=== PATIENT | female | born 1950 | race Caucasian/White ===

== ENCOUNTER → 2016-09-09 | Outpatient (CLI) | payer MEDICARE | LOC: WI 08:56 | DX: Z12.31 Encounter for screening mammogram for malignant neoplasm of breast (principal) | CPT/HCPCS: 77067; G0202 ==

== ENCOUNTER → 2017-06-18 | Outpatient (CLI) | payer MEDICARE ==
--- NOTE | 2017-06-18 10:54 | RADIOLOGY REPORT (SQ) ---
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 Images stored on PACS. CONTRAST TYPE AND DOSE: 12 mL Multihance. RENAL FUNCTION: GFR > 60. LIMITATIONS: None. FINDINGS: ANATOMY: No developmental anomalies. Normal vascular flow voids. Pituitary fossa normal. CSF SPACES: Normal in size and contour. No hemorrhage. CEREBRUM: Sulci and gyri normal in size and contour. Normal white matter signal on FLAIR imaging. No evidence of hemorrhage, mass, or extraaxial fluid collection. No abnormal enhancement post contrast. POSTERIOR FOSSA: No brain parenchymal signal alteration. No hemorrhage. No edema, masses, or mass eff ect. 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 Remainder of the thin section temporal bone imaging is otherwis e unremarkable DIFFUSION IMAGING: Negative for acute or subacute infarction. ORBITS: No masses. Globes normal. PARANASAL SINUSES: No fluid levels. Mucosa normal. OTHER: No other significant finding. 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 TECHNICAL DOCUMENTATION: JOB ID: [id number] [employer]- All Rights Reserved
== END ==
LOC: RAD 08:48
PROVIDERS: ATTEND Otolaryngology
DX: D33.3 Benign neoplasm of cranial nerves (principal); H91.8X2 Other specified hearing loss, left ear
CPT/HCPCS: 82565; 70553; A9577

== ENCOUNTER → 2017-12-18 | Outpatient (CLI) | payer MEDICARE ==
--- NOTE | 2017-12-19 08:12 | WOMENS IMAGING REPORT ---
EXAM DESCRIPTION: 3D SCREENING MAMMO BILAT COMPLETED DATE/TIME: 12/18/2017 9:37 am REASON FOR STUDY: BILATERAL MAMMO SCREENING/Z12.31 COMPARISON: 09/09/2016 and 09/08/2015. TECHNIQUE: Standard craniocaudal and mediolateral oblique views of each breast recorded using digita l acquisition and breast tomosynthesis. LIMITATIONS: None. FINDINGS: RIGHT BREAST MASSES: No suspicious masses. CALCIFICATIONS: No new or suspicious calcifications. ARCHITECTURAL DISTORTION: None. DEVELOPING DENSITY: Possible developing density in the lateral breast, located 8 cm from the nipple, seen on the CC image only. Somewhat difficult to evaluate due to adjacent dense parenchyma. On shaun synthesis images there is suggestion of some spiculation. ASYMMETRY: None noted. OTHER: No other significant findings. LEFT BREAST MASSES: No suspicious masses. CALCIFICATIONS: No new or suspicious calcifications. ARCHITECTURAL DISTORTION: None. DEVELOPING DENSITY: None. ASYMMETRY: None noted. OTHER: No other significant findings. Read with the assistance of CAD. .[facility] - R2 Cenova Version 1.3 .[facility] - R2 Cenova Version 1.3 .[facility] - R2 Cenova Version 2.4 .[facility] - R2 Cenova Version 2.4 .[facility] - R2 Help Desk Analyst Version 9.2 IMPRESSION: Possible developing density in the lateral right breast. Stable mammographic appearance of the left breast. BREAST DENSITY: c. The breasts are heterogeneously dense, which may obscure small masses. BIRAD: 0 Incomplete: Needs Additional Imaging Evaluation and/or prior Mammograms for Comparison. RECOMMENDATION: RECOMMENDED FOLLOW-UP: Recommend additional evaluation with compression breast tomos ynthesis views of the right breast and ultrasound of the right breast. Recommend routine screening m ammography of the left breast. The patient will be contacted for additional imaging. COMMENT: The patient has been notified of the results by letter per SA requirements. Additional no tification policies are in place for contacting patient with suspicious or incomplete findings. Quality ID #225: The [employer] recommends an annual screening mammogram for women aged 40 years or over. This facility utilizes a reminder system to ensure that all patients receive reminder letters, and/or direct phone calls for appointments. This includes reminders for routine scr eening mammograms, diagnostic mammograms, or other Breast Imaging Interventions when appropriate. Th is patient will be placed in the appropriate reminder system. The [employer] (ACR) has developed recommendations for screening MRI of the breast s in certain patient populations, to be used in conjunction with mammography. Breast MRI surveillanc e may be appropriate for women with more than 20% lifetime risk of developing breast cancer as deter mined by genetic testing, significant family history of the disease, or history of mantle radiation f or Hodgkins Disease. ACR Practice Guidelines 2008. DBT Technology DBT is a type of tomographic mammography. With conventional mammography, overlapping breast tissue ma y make lesions difficult to detect, even with good compression. DBT uses an x-ray tube that rotates a round the breast, taking images at different angles. These images are then combined to create thin sl ices of the breast that the radiologist can view as a 3D reconstruction. The [employer] unit can perform full-field digital mammograms (2D imaging); or DBT (3D imaging); or both, in a combination mode that quickly performs both the mammogram and the tomosynthesis scan while the breast is still compressed. PQRS 6045F: Fluoroscopic imaging is not utilized for breast tomosynthesis. TECHNICAL DOCUMENTATION: FINDING NUMBER: (1) ASSESSMENT: (1) JOB ID: [id number] [employer]- All Rights Reserved Reading location - IP/workstation name: [email or web address]
== END ==
LOC: WI 08:24
PROVIDERS: ATTEND Obstetrics & Gynecology Gynecology
DX: Z12.31 Encounter for screening mammogram for malignant neoplasm of breast (principal); N64.4 Mastodynia; N60.19 Diffuse cystic mastopathy of unspecified breast
CPT/HCPCS: 77063; 77067

== ENCOUNTER → 2017-12-25 | Outpatient (CLI) | payer MEDICARE ==
--- NOTE | 2017-12-26 07:37 | WOMENS IMAGING REPORT ---
EXAM DESCRIPTION: RIGHT DIAGNOSTIC MAMMO W/CAD; U/S BREAST UNILAT LIMITED COMPLETED DATE/TIME: 12/25/2017 10:59 am; 12/25/2017 12:38 pm REASON FOR STUDY: R92.2; RT BREAST; R92.2 R92.2 INCONCLUSIVE MAMMOGRAM COMPARISON: Mammograms 2015, 2016, 2018 TECHNIQUE: Standard craniocaudal and 90 mediolateral images of the breast recorded with digital acq uisition. Cone compression right breast CC view. Right breast ultrasound LIMITATIONS: None. FINDINGS: BREAST: Right MASSES: In the right breast 10 o'clock position about 8 cm from the nipple there is a persistent mamm ographic nodule, about 1 cm in size. CALCIFICATIONS: No new or suspicious calcifications. ARCHITECTURAL DISTORTION: None. DEVELOPING DENSITY: None. ASYMMETRY: None noted. OTHER: No other significant findings. Read with the assistance of CAD. .[facility] - R2 Cenova Version 1.3 .[facility] Imaging - R2 Cenova Version 1.3 .[facility] Imaging - R2 Cenova Version 2.4 .[facility] [place] - R2 Cenova Version 2.4 .[facility] - R2 Nuclear Physics Professor Version 9.2 Right breast ultrasound: Patient by both myself as well as the patient. In the right breast 10 o'clock position, about 8 cm f rom the nipple a persistent hypoechoic solid nodule is present, better visualized with tissue harmoni cs. This measures about 1 cm in size and likely correlates with the mammographic nodule. This has i ll-defined borders and acoustic absorption, worrisome for malignancy. Ultrasound-guided core biopsy and post biopsy clip placement is recommended in his right breast lesio n 10 o'clock position. These findings were discussed with the patient. She is amenable to biopsy be ing performed at [facility] by Dr. Lee. IMPRESSION: 1 cm solid nodule right breast laterally at the 10 o'clock position, worrisome for malig sara. Ultrasound-guided core biopsy, post biopsy clip placement with immediate two-view follow-up m ammogram recommended BREAST DENSITY: c. The breasts are heterogeneously dense, which may obscure small masses. BIRAD: 4C-Suspicious abnormality: Lesion which may require intervention with moderate concern for ma lignancy. RECOMMENDATION: RECOMMENDED FOLLOW UP: Right breast ultrasound-guided core biopsy, post biopsy clip placement with immediate two-view follow-up right breast mammogram recommended SPECIFIC INTERVENTION/IMAGING/CONSULTATION RECOMMENDED:As above COMMUNICATION:These findings were discussed directly with the patient at time of service COMMENT: The patient has been notified of the results by letter per SA requirements. Additional no tification policies are in place for contacting patient with suspicious or incomplete findings. Quality ID #225: The [employer] recommends an annual screening mammogram for women aged 40 years or over. This facility utilizes a reminder system to ensure that all patients receive reminder letters, and/or direct phone calls for appointments. This includes reminders for routine scr eening mammograms, diagnostic mammograms, or other Breast Imaging Interventions when appropriate. Th is patient will be placed in the appropriate reminder system. The [employer] (ACR) has developed recommendations for screening MRI of the breast s in certain patient populations, to be used in conjunction with mammography. Breast MRI surveillanc e may be appropriate for women with more than 20% lifetime risk of developing breast cancer as deter mined by genetic testing, significant family history of the disease, or history of mantle radiation f or Hodgkins Disease. ACR Practice Guidelines 2008. TECHNICAL DOCUMENTATION: FINDING NUMBER: (1) ASSESSMENT: (1) JOB ID: [id number] [employer]- All Rights Reserved Reading location - IP/workstation name: [email or web address]
--- NOTE | 2017-12-30 13:19 | WOMENS IMAGING REPORT ---
EXAM DESCRIPTION: RIGHT DIAGNOSTIC MAMMO W/CAD; U/S BREAST UNILAT LIMITED COMPLETED DATE/TIME: 12/25/2017 10:59 am; 12/25/2017 12:38 pm REASON FOR STUDY: R92.2; RT BREAST; R92.2 R92.2 INCONCLUSIVE MAMMOGRAM COMPARISON: Mammograms 2015, 2016, 2018 TECHNIQUE: Standard craniocaudal and 90 mediolateral images of the breast recorded with digital acq uisition. Cone compression right breast CC view. Right breast ultrasound LIMITATIONS: None. FINDINGS: BREAST: Right MASSES: In the right breast 10 o'clock position about 8 cm from the nipple there is a persistent mamm ographic nodule, about 1 cm in size. CALCIFICATIONS: No new or suspicious calcifications. ARCHITECTURAL DISTORTION: None. DEVELOPING DENSITY: None. ASYMMETRY: None noted. OTHER: No other significant findings. Read with the assistance of CAD. .[facility] - R2 Cenova Version 1.3 .[facility] - R2 Cenova Version 1.3 .[facility] Imaging - R2 Cenova Version 2.4 .[facility] - R2 Cenova Version 2.4 .[facility] - R2 Breeder Hen Service Technician Version 9.2 Right breast ultrasound: Patient by both myself as well as the patient. In the right breast 10 o'clock position, about 8 cm f rom the nipple a persistent hypoechoic solid nodule is present, better visualized with tissue harmoni cs. This measures about 1 cm in size and likely correlates with the mammographic nodule. This has i ll-defined borders and acoustic absorption, worrisome for malignancy. Ultrasound-guided core biopsy and post biopsy clip placement is recommended in his right breast lesio n 10 o'clock position. These findings were discussed with the patient. She is amenable to biopsy be ing performed at [facility] by Dr. Lee. IMPRESSION: 1 cm solid nodule right breast laterally at the 10 o'clock position, worrisome for malig sara. Ultrasound-guided core biopsy, post biopsy clip placement with immediate two-view follow-up m ammogram recommended BREAST DENSITY: c. The breasts are heterogeneously dense, which may obscure small masses. BIRAD: 4C-Suspicious abnormality: Lesion which may require intervention with moderate concern for ma lignancy. RECOMMENDATION: RECOMMENDED FOLLOW UP: Right breast ultrasound-guided core biopsy, post biopsy clip placement with immediate two-view follow-up right breast mammogram recommended SPECIFIC INTERVENTION/IMAGING/CONSULTATION RECOMMENDED:As above COMMUNICATION:These findings were discussed directly with the patient at time of service COMMENT: The patient has been notified of the results by letter per SA requirements. Additional no tification policies are in place for contacting patient with suspicious or incomplete findings. Quality ID #225: The [employer] recommends an annual screening mammogram for women aged 40 years or over. This facility utilizes a reminder system to ensure that all patients receive reminder letters, and/or direct phone calls for appointments. This includes reminders for routine scr eening mammograms, diagnostic mammograms, or other Breast Imaging Interventions when appropriate. Th is patient will be placed in the appropriate reminder system. The [employer] (ACR) has developed recommendations for screening MRI of the breast s in certain patient populations, to be used in conjunction with mammography. Breast MRI surveillanc e may be appropriate for women with more than 20% lifetime risk of developing breast cancer as deter mined by genetic testing, significant family history of the disease, or history of mantle radiation f or Hodgkins Disease. ACR Practice Guidelines 2008. TECHNICAL DOCUMENTATION: FINDING NUMBER: (1) ASSESSMENT: (1) JOB ID: [id number] [employer]- All Rights Reserved Reading location - IP/workstation name: [facility]
== END ==
LOC: WI 10:35
PROVIDERS: ATTEND Obstetrics & Gynecology Gynecology
DX: R92.2 Inconclusive mammogram (principal)
CPT/HCPCS: 76642

== ENCOUNTER → 2018-06-30 | Outpatient (CLI) | payer MEDICARE ==
--- NOTE | 2018-06-30 12:17 | RADIOLOGY REPORT (SQ) ---
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 TECHNIQUE: Multiplanar imaging includes non-contrasted T1, T2, FLAIR, diffusion with ADC map and pos t gadolinium contrast sequences. Additional thin slice images with and without gadolinium contrast a cquired in the posterior fossa. Images stored on PACS. CONTRAST TYPE AND DOSE: 14 mL Dot[employer]. RENAL FUNCTION: GFR > 60. LIMITATIONS: None. FINDINGS: ANATOMY: No anomalies. Normal vascular flow voids. Pituitary fossa normal. CSF SPACES: Normal. CEREBRUM: A few scattered high signal intensity lesions scattered through the white matter on FLAIR i maging with distribution suggesting chronic micro-vascular ischemic changes. No hemorrhage. No melissa a, masses or mass effect. No enhancing lesions. POSTERIOR FOSSA: Stable 3 x 4 mm enhancing lesion in the left internal auditory canal. DIFFUSION IMAGING: Negative for acute or sub-acute infarction. ORBITS: No masses. Globes normal. PARANASAL SINUSES: No fluid levels. Mucosa normal. OTHER: No other significant finding. IMPRESSION: STABLE 3 X 4 MM ENHANCING LESION IN THE LEFT INTERNAL AUDITORY CANAL CONSISTENT WITH AN ACOUSTIC SCHWANNOMA. MILD CHRONIC MICROVASCULAR ISCHEMIA. NO OTHER SIGNIFICANT FINDINGS. TECHNICAL DOCUMENTATION: JOB ID: [id number] [email or web address]- All Rights Reserved Reading location - IP/workstation name: [email or web address]
== END ==
LOC: RAD 11:54
PROVIDERS: ATTEND Otolaryngology
DX: Z01.812 Encounter for preprocedural laboratory examination (principal); H91.8X2 Other specified hearing loss, left ear; D33.3 Benign neoplasm of cranial nerves
CPT/HCPCS: 82565; 70553; A9576

== ENCOUNTER → 2018-12-23 | Outpatient (CLI) | payer MEDICARE ==
--- NOTE | 2018-12-23 12:21 | WOMENS IMAGING REPORT ---
EXAM DESCRIPTION: 3D SCREENING MAMMO BILAT COMPLETED DATE/TIME: 12/23/2018 10:45 am REASON FOR STUDY: Z12.31 ENCOUNTER FOR SCREENING MAMMOGRAM FOR MALIGNANT NEOPLASM OF BREAST Z12.31 ENCNTR SCREEN MAMMOGRAM FOR MALIGNANT NEOPLASM OF [place]E COMPARISON: 12/18/2017 and 09/09/2016. EXAM PARAMETERS: Standard craniocaudal and mediolateral oblique views of each breast recorded using digital acquisition and breast tomosynthesis. Read with the assistance of CAD. .[facility] - [employer] Conditioning Machine Operator Version 9.2 LIMITATIONS: None. FINDINGS: RIGHT BREAST MASSES: Irregular nodular density in the upper-outer breast, best demonstrated on the MLO images. CALCIFICATIONS: No new or suspicious calcifications. ARCHITECTURAL DISTORTION: None. DEVELOPING DENSITY: None. ASYMMETRY: None noted. OTHER: No other significant findings. LEFT BREAST MASSES: No suspicious masses. CALCIFICATIONS: No new or suspicious calcifications. ARCHITECTURAL DISTORTION: None. DEVELOPING DENSITY: None. ASYMMETRY: None noted. OTHER: No other significant findings. IMPRESSION: Irregular nodular density in the upper-outer right breast. Stable mammographic appearan ce of the left breast. 0 Incomplete: Needs Additional Imaging Evaluation and/or prior Mammograms for Comparison. BREAST DENSITY: c. The breasts are heterogeneously dense, which may obscure small masses. BIRAD: ASSESSMENT: 0 Incomplete: Needs Additional Imaging Evaluation and/or prior Mammograms for C omparison. RECOMMENDATION: RECOMMENDED FOLLOW-UP: Recommend additional evaluation with compression views of the right breast and ultrasound of the right breast. Recommend routine screening mammography of the lef t breast. The patient will be contacted for additional imaging. COMMENT: The patient has been notified of the results by letter per SA requirements. Additional no tification policies are in place for contacting patient with suspicious or incomplete findings. Quality ID #225: The [employer] recommends an annual screening mammogram for women aged 40 years or over. This facility utilizes a reminder system to ensure that all patients receive reminder letters, and/or direct phone calls for appointments. This includes reminders for routine scr eening mammograms, diagnostic mammograms, or other Breast Imaging Interventions when appropriate. Th is patient will be placed in the appropriate reminder system. TECHNICAL DOCUMENTATION: FINDING NUMBER: (1) ASSESSMENT: (1) JOB ID: [id number] [employer]- All Rights Reserved Reading location - IP/workstation name: [email or web address]
== END ==
LOC: WI 10:37
PROVIDERS: ATTEND Obstetrics & Gynecology Gynecology
DX: Z12.31 Encounter for screening mammogram for malignant neoplasm of breast (principal); N63.11 Unspecified lump in the right breast, upper outer quadrant
CPT/HCPCS: 77063; 77067

== ENCOUNTER → 2019-01-13 | Outpatient (CLI) | payer MEDICARE ==
--- NOTE | 2019-01-13 12:57 | WOMENS IMAGING REPORT ---
EXAM DESCRIPTION: RIGHT DIAGNOSTIC MAMMO W/CAD; U/S BREAST UNILAT LIMITED COMPLETED DATE/TIME: 01/13/2019 11:03 am; 01/13/2019 11:54 am REASON FOR STUDY: N63.11 IRREGULAR NODULAR DENSITY IN UPPER OUTER RIGHT BREAST; N63.11 RIGHT BREAST N63.11 UNSPECIFIED LUMP IN THE RIGHT BREAST, UPPER OUTER DAVID COMPARISON: 2015 through 2017. 12/23/2018. EXAM PARAMETERS: Spot CC and MLO. Non spot compressed true lateral. Targeted right breast ultrasound. LIMITATIONS: None. FINDINGS: BREAST LATERALITY: right MASSES: Difficult to define any discrete mass. Chronic heterogeneous tissue throughout the upper out er quadrant. CALCIFICATIONS: No new or suspicious calcifications. ARCHITECTURAL DISTORTION: None. DEVELOPING DENSITY: None. ASYMMETRY: None noted. OTHER: No other significant findings. Ultrasound: At approximately 10- 11 o'clock in the upper outer quadrant, there is a sub 8 mm area of irregular hypoechoic tissue with shadowing. IMPRESSION: Mammograms are relatively unremarkable. However, there is an irregular lesion seen on u ltrasound which has suspicious features. This is amenable to ultrasound-guided core biopsy. BREAST DENSITY: c. The breasts are heterogeneously dense, which may obscure small masses. BIRAD: ASSESSMENT: 4 Suspicious. Biopsy should be performed in the absence of clinical contra-indic ation. RECOMMENDATION: RECOMMENDED FOLLOW UP: Birads 4: Biopsy should be performed in the absence of clinic al contraindication. SPECIFIC INTERVENTION/IMAGING/CONSULTATION RECOMMENDED:The suspicious finding(s) amenable to US guide d core/vacuum assisted biopsy. COMMUNICATION:Full imaging was not reviewed at the time of the patient's visit. She was instructed t o follow up with her referring clinician for results. COMMENT: The patient has been notified of the results by letter per SA requirements. Additional no tification policies are in place for contacting patient with suspicious or incomplete findings. Quality ID #225: The [employer] recommends an annual screening mammogram for women aged 40 years or over. This facility utilizes a reminder system to ensure that all patients receive reminder letters, and/or direct phone calls for appointments. This includes reminders for routine scr eening mammograms, diagnostic mammograms, or other Breast Imaging Interventions when appropriate. Th is patient will be placed in the appropriate reminder system. TECHNICAL DOCUMENTATION: FINDING NUMBER: (1) ASSESSMENT: (1) JOB ID: [id number] [employer]- All Rights Reserved Reading location - IP/workstation name: [email or web address]
== END ==
LOC: WI 10:40
PROVIDERS: ATTEND Obstetrics & Gynecology Gynecology
DX: N63.11 Unspecified lump in the right breast, upper outer quadrant (principal)
CPT/HCPCS: 76642

== ENCOUNTER → 2019-09-21 | Outpatient (CLI) | payer MEDICARE ==
--- NOTE | 2019-09-21 15:59 | WOMENS IMAGING REPORT ---
EXAM DESCRIPTION: 3D DX MAMMO RIGHT UNILAT; U/S BREAST UNILAT LIMITED IMAGES COMPLETED DATE/TIME: 09/21/2019 10:08 am; 09/21/2019 10:42 am REASON FOR STUDY: 6 MONTH FOLLOW UP; RT BREAST 6 MONTH FOLLOW UP R92.8 OTH ABN AND INCONCLUSIVE FIN DINGS ON DX IMAGING OF [place] COMPARISON: Multiple mammograms since 2016 Right breast ultrasound 12/25/2017, 01/13/2019 EXAM PARAMETERS: Standard craniocaudal, 90 mediolateral and mediolateral oblique images of the ramila st recorded using digital acquisition and breast tomosynthesis. Cone compression CC and MLO orientation mammograms upper outer quadrant. Right breast ultrasound was also performed. Read with the assistance of CAD. .[facility] - [employer] Process Description Writer Version 9.2 LIMITATIONS: None. FINDINGS: BREAST LATERALITY: right MASSES: No suspicious masses. CALCIFICATIONS: No new or suspicious calcifications. ARCHITECTURAL DISTORTION: None. ASYMMETRY: None noted. OTHER: No other significant findings. Right breast ultrasound: Ultrasound of the right breast upper outer quadrant was performed. At the 10 o'clock position a hypo echoic solid ill-defined mass with acoustic absorption is present measuring about 9 x 9 mm in size. This is taller than wide. There is acoustic shadowing and ill-defined margins with questionable inte rnal color flow. This is suspicious for malignancy, ultrasound-guided core biopsy, post biopsy clip placement with follow-up two-view mammogram recommended. This finding was best visualized with tissu e harmonics. Ultrasound of the right axilla is unremarkable. No enlarged lymph nodes. IMPRESSION: Persistent sonographic 9 mm mass right breast 10 o'clock position, worrisome for maligna ncy. Ultrasound-guided core biopsy with post biopsy clip placement and follow-up two-view mammogram recommended. BREAST DENSITY: c. The breasts are heterogeneously dense, which may obscure small masses. BIRAD: ASSESSMENT: 4 Suspicious. Biopsy should be performed in the absence of clinical contra-indic ation. RECOMMENDATION: RECOMMENDED FOLLOW UP: Ultrasound-guided core biopsy with post biopsy clip placement and follow-up two-view mammogram recommended. SPECIFIC INTERVENTION/IMAGING/CONSULTATION RECOMMENDED:Ultrasound-guided core biopsy with post biopsy clip placement and follow-up two-view mammogram recommended COMMUNICATION:Patient notified by letter COMMENT: The patient has been notified of the results by letter per MQSA requirements. Additional no tification policies are in place for contacting patient with suspicious or incomplete findings. Quality ID #225: [employer] recommends an annual screening mammogram for women aged 40 years or over. This facility utilizes a reminder system to ensure that all patients receive reminder letters, and/or direct phone calls for appointments. This includes reminders for routine scr eening mammograms, diagnostic mammograms, or other Breast Imaging Interventions when appropriate. Th is patient will be placed in the appropriate reminder system. TECHNICAL DOCUMENTATION: FINDING NUMBER: (1) ASSESSMENT: (1) JOB ID: [id number] 2010 [employer]- All Rights Reserved Reading location - IP/workstation name: [email or web address]
--- NOTE | 2019-09-21 15:59 | WOMENS IMAGING REPORT ---
EXAM DESCRIPTION: 3D DX MAMMO RIGHT UNILAT; U/S BREAST UNILAT LIMITED IMAGES COMPLETED DATE/TIME: 09/21/2019 10:08 am; 09/21/2019 10:42 am REASON FOR STUDY: 6 MONTH FOLLOW UP; RT BREAST 6 MONTH FOLLOW UP R92.8 OTH ABN AND INCONCLUSIVE FIN DINGS ON DX IMAGING OF [place] COMPARISON: Multiple mammograms since 2016 Right breast ultrasound 12/25/2017, 01/13/2019 EXAM PARAMETERS: Standard craniocaudal, 90 mediolateral and mediolateral oblique images of the ramila st recorded using digital acquisition and breast tomosynthesis. Cone compression CC and MLO orientation mammograms upper outer quadrant. Right breast ultrasound was also performed. Read with the assistance of CAD. 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 FINDINGS: BREAST LATERALITY: right MASSES: No suspicious masses. CALCIFICATIONS: No new or suspicious calcifications. ARCHITECTURAL DISTORTION: None. ASYMMETRY: None noted. OTHER: No other significant findings. Right breast ultrasound: Ultrasound of the right breast upper outer quadrant was performed. At the 10 o'clock position a hypo echoic solid ill-defined mass with acoustic absorption is present measuring about 9 x 9 mm in size. This is taller than wide. There is acoustic shadowing and ill-defined margins with questionable inte rnal color flow. This is suspicious for malignancy, ultrasound-guided core biopsy, post biopsy clip placement with follow-up two-view mammogram recommended. This finding was best visualized with tissu e harmonics. Ultrasound of the right axilla is unremarkable. No enlarged lymph nodes. IMPRESSION: Persistent sonographic 9 mm mass right breast 10 o'clock position, worrisome for maligna ncy. Ultrasound-guided core biopsy with post biopsy clip placement and follow-up two-view mammogram recommended. BREAST DENSITY: c. The breasts are heterogeneously dense, which may obscure small masses. BIRAD: ASSESSMENT: 4 Suspicious. Biopsy should be performed in the absence of clinical contra-indic ation. RECOMMENDATION: RECOMMENDED FOLLOW UP: Ultrasound-guided core biopsy with post biopsy clip placement and follow-up two-view mammogram recommended. SPECIFIC INTERVENTION/IMAGING/CONSULTATION RECOMMENDED:Ultrasound-guided core biopsy with post biopsy clip placement and follow-up two-view mammogram recommended COMMUNICATION:Patient notified by letter COMMENT: The patient has been notified of the results by letter per MQSA requirements. Additional no tification policies are in place for contacting patient with suspicious or incomplete findings. Quality ID #225: The [employer] recommends an annual screening mammogram for women aged 40 years or over. This facility utilizes a reminder system to ensure that all patients receive reminder letters, and/or direct phone calls for appointments. This includes reminders for routine scr eening mammograms, diagnostic mammograms, or other Breast Imaging Interventions when appropriate. Th is patient will be placed in the appropriate reminder system. TECHNICAL DOCUMENTATION: FINDING NUMBER: (1) ASSESSMENT: (1) JOB ID: [id number] 2010 [employer] All Rights Reserved Reading location - IP/workstation name: [email or web address]
== END ==
LOC: WI 09:42
PROVIDERS: ATTEND Surgery
DX: R92.8 Other abnormal and inconclusive findings on diagnostic imaging of breast (principal)
CPT/HCPCS: 76642; 77065; G0279

== ENCOUNTER → 2019-12-29 | Outpatient (CLI) | payer MEDICARE ==
--- NOTE | 2019-12-29 12:34 | WOMENS IMAGING REPORT ---
EXAM DESCRIPTION: 3D SCREENING MAMMO BILAT IMAGES COMPLETED DATE/TIME: 12/29/2019 10:15 am REASON FOR STUDY: Z12.31 ENCOUNTER FOR SCREENING MAMMOGRAM FOR MALIGNANT NEOPLASM OF BREAST Z12.31 ENCNTR SCREEN MAMMOGRAM FOR MALIGNANT NEOPLASM OF [place] COMPARISON: 12/23/2018, 09/21/2019, 12/18/2017, 09/09/2016 EXAM PARAMETERS: Views: Standard craniocaudal and mediolateral oblique views of each breast recorded using digital acquisition and breast tomosynthesis. Read with the assistance of CAD. .[facility], [facility] - [employer]per Version 9.2 LIMITATIONS: None. FINDINGS: No suspicious masses, suspicious calcifications or architectural distortion. No areas of c oncern. IMPRESSION: NEGATIVE MAMMOGRAM. BIRADS 1. BREAST DENSITY: c. The breasts are heterogeneously dense, which may obscure small masses. BIRAD: ASSESSMENT: 1 NEGATIVE RECOMMENDATION: ROUTINE SCREENING COMMENT: The patient has been notified of the results by letter per [place] requirements. Additional no tification policies are in place for contacting patient with suspicious or incomplete findings. Quality ID #225: The [employer] recommends an annual screening mammogram for women aged 40 years or over. This facility utilizes a reminder system to ensure that all patients receive reminder letters, and/or direct phone calls for appointments. This includes reminders for routine scr eening mammograms, diagnostic mammograms, or other Breast Imaging Interventions when appropriate. Th is patient will be placed in the appropriate reminder system. TECHNICAL DOCUMENTATION: FINDING NUMBER: (1) ASSESSMENT: (1) JOB ID: [id number] 2010 [employer] All Rights Reserved Reading location - IP/workstation name: [email or web address]
== END ==
LOC: WI 10:05
PROVIDERS: ATTEND Obstetrics & Gynecology
DX: Z12.31 Encounter for screening mammogram for malignant neoplasm of breast (principal)
CPT/HCPCS: 77063; 77067